=== PATIENT | male | born 1985 | race Two or more races ===

== ENCOUNTER 2016-03-28 23:17 | Emergency (ER) | payer MEDICAID ==
[~2016-03-28] VITALS: Ht 167.6 cm; Wt 79.4 kg
[2016-03-28 23:34] VITALS: BP 176/112
[2016-03-29 00:01] LABS: Basophils # (auto) 0.1 uL; Basophils % (auto) 1.6 % (0.0-2.0); Eosinophils # (auto) 0.1 uL; Eosinophils % (auto) 1.6 % (0.0-7.0); Hematocrit 48.8 % (41.0-53.0); Hemoglobin 16.4 g/dL (13.5-17.5); Lymphocytes # (auto) 2.3 uL; Lymphocytes % (auto) 30.3 % (10.0-50.0); Mean Corpuscular Hemoglobin 31.1 pg (28.0-32.0); Mean Corpuscular Hgb Conc. 33.5 g/dL (32.0-36.0); Mean Platelet Volume 7.5 fL (7.4-10.4); Monocytes # (auto) 0.6 uL; Monocytes % (auto) 8.4 % (0.0-12.0); Neutrophils # (auto) 4.4 uL; Neutrophils % (auto) 58.1 % (37.0-80.0); Platelet Count (auto) 266 10^3/uL (140-450); Red Cell Distribution Width 11.9 % (11.6-16.0); White Blood Cell 7.5 10^3/uL (4.4-10.8)
[2016-03-29 00:20] LABS: Albumin 4.6 g/dL (3.4-5.0); Anion Gap 10 (5-15); Aspartate Aminotransferase 20 U/L (15-37); BUN/Creatinine Ratio 9.4; Blood Urea Nitrogen 9 mg/dL (7-18); Carbon Dioxide 26 mmol/L (21-32); Chloride 103 mmol/L (98-107); GFR African American 116 mL/min; GFR Non-African American 96 mL/min; Glucose 112 mg/dL (74-106); Magnesium 2.2 mg/dL (1.6-2.6); Potassium 3.8 mmol/L (3.5-5.1); Sodium 139 mmol/L (136-145)
[2016-03-29 00:24] LABS: Alkaline Phosphatase 75 U/L (45-117); Bilirubin, Total 1.8 mg/dL (0.2-1.0); Total Protein 8.2 g/dL (6.4-8.2)
== END 2016-03-29 05:26 | disposition left against medical advice (07) ==
LOC: ER 23:20
DX: R00.2 Palpitations (principal); R22.0 Localized swelling, mass and lump, head; Z53.21 Procedure and treatment not carried out due to patient leaving prior to being seen by health care provider
CPT/HCPCS: 36415; 71020; 80053; 80320; 83735; 84484; 85025; 93005

== ENCOUNTER 2016-04-25 23:56 | Inpatient (IN) | payer MEDICAID ==
[~2016-04-25] VITALS: Ht 167.6 cm; Wt 87.2 kg
[2016-04-26 01:18] LABS: DEFINITIVE VIEW TRANSMISSION; Hematocrit 52.6 % (41.0-53.0); Hemoglobin 17.6 g/dL (13.5-17.5); Mean Corpuscular Hgb Conc. 33.4 g/dL (32.0-36.0); Mean Corpuscular Volume 92.7 fL (80.0-100.0); Mean Platelet Volume 8.2 fL (7.4-10.4); Platelet Count (auto) 242 10^3/uL (140-450); Red Cell Distribution Width 11.9 % (11.6-16.0); White Blood Cell 8.8 10^3/uL (4.4-10.8)
[2016-04-26 01:22] LABS: Metamyelocytes % 0; Myelocytes % 0; Promyelocytes % 0; Reactive Lymphocytes 0
[2016-04-26 01:36] LABS: Albumin 4.7 g/dL (3.4-5.0); Bilirubin, Total 2.5 mg/dL (0.2-1.0); Calcium 8.6 mg/dL (8.5-10.1); Potassium 3.1 mmol/L (3.5-5.1); Total Protein 8.1 g/dL (6.4-8.2)
[2016-04-26 01:49] LABS: Platelet Estimate Adequate; RBC Morphology Normal
[2016-04-26] MEDS ORDERED: HYDROmorphone HCL 2 MG/ML VL IV ONE (03:00)
[2016-04-26] MEDS ORDERED: ONDANSETRON HCL 4 MG/2 ML VIAL IV ONE (03:00)
[2016-04-26] MEDS ORDERED: SODIUM CHLORIDE 0.9% 1,000 ML IV SCH (05:29)
[2016-04-26] MEDS ORDERED: ACETAMINOPHEN 325 MG TAB PO PRN (05:30)
[2016-04-26] MEDS ORDERED: TEMAZEPAM 15 MG CAP PO PRN (05:30)
[2016-04-26] MEDS ORDERED: MORPHINE SULF INJ 2 MG/ML SYRINGE 1ML IV PRN (05:30)
[2016-04-26] MEDS ORDERED: ONDANSETRON HCL 4 MG/2 ML VIAL IV PRN (05:30)
[2016-04-26] MEDS ORDERED: HYDROcodone-ACET 5/325MG TAB PO PRN (05:30)
[2016-04-26 06:15] VITALS: BP 120/84
[2016-04-26] MEDS: PANTOPRAZOLE SODIUM 40 MG/10 ML VIAL IV SCH ×2 (06:23→10:00)
[2016-04-26] MEDS ORDERED: POTASSIUM CHL 20 Meq TABLET PO ONE (08:45)
[2016-04-26 09:00] VITALS: BP 120/84
[2016-04-26] MEDS ORDERED: cefTRIAXone 1GM/50ML D5W 50 ML IV SCH (09:00)
[2016-04-26 11:23] LABS: Urine Bilirubin Negative (Negative); Urine Blood Negative /uL (Negative); Urine Color Yellow (Yellow); Urine Glucose Normal (Normal); Urine Mucus FEW (None Seen); Urine Nitrite Negative (Negative); Urine RBC <1 /hpf (0 - 3); Urine Urobilinogen Normal (Negative); Urine pH 5.5 (5.0-8.0)
[2016-04-26 11:43] LABS: Urine Ketone 3+ (Negative)
== END 2016-04-26 12:51 | disposition home or self-care (01) | DRG 282 ==
LOC: ER 23:57 → OVERFLOW 23:58 → CENTRAL 04-26 06:15
PROVIDERS: ADMIT Nurse Practitioner; ATTEND Nurse Practitioner
DX: K85.20 Alcohol induced acute pancreatitis without necrosis or infection (principal); K76.0 Fatty (change of) liver, not elsewhere classified; E87.6 Hypokalemia; F17.210 Nicotine dependence, cigarettes, uncomplicated; F41.9 Anxiety disorder, unspecified; F12.90 Cannabis use, unspecified, uncomplicated; F15.90 Other stimulant use, unspecified, uncomplicated; F10.10 Alcohol abuse, uncomplicated
CPT/HCPCS: 36415; 71020; 74176; 80053; 80320; 81001; 82150; 83690; 84484; 85007; 85027; 93005; 96374; 96375; C9113; G0434; J2405

== ENCOUNTER 2016-05-04 07:58 | Emergency (ER) | payer MEDICAID ==
[~2016-05-04] VITALS: Ht 167.6 cm; Wt 84.4 kg
[2016-05-04 08:54] LABS: Basophils # (auto) 0 uL; Basophils % (auto) 0.7 % (0.0-2.0); Eosinophils # (auto) 0.2 uL; Eosinophils % (auto) 4.1 % (0.0-7.0); Hemoglobin 16.1 g/dL (13.5-17.5); Lymphocytes # (auto) 1.4 uL; Lymphocytes % (auto) 37.9 % (10.0-50.0); Mean Corpuscular Hemoglobin 30.5 pg (28.0-32.0); Mean Corpuscular Hgb Conc. 32.8 g/dL (32.0-36.0); Mean Corpuscular Volume 92.8 fL (80.0-100.0); Mean Platelet Volume 8.3 fL (7.4-10.4); Monocytes # (auto) 0.4 uL; Monocytes % (auto) 10.4 % (0.0-12.0); Neutrophils # (auto) 1.8 uL; Neutrophils % (auto) 46.9 % (37.0-80.0); Platelet Count (auto) 278 10^3/uL (140-450); Red Cell Distribution Width 13.1 % (11.6-16.0); White Blood Cell 3.8 10^3/uL (4.4-10.8)
[2016-05-04 08:58] LABS: Urine RBC None Seen /hpf (0 - 3)
[2016-05-04 09:35] LABS: Urine Bilirubin Negative (Negative); Urine Blood Negative /uL (Negative); Urine Color Yellow (Yellow); Urine Glucose Normal (Normal); Urine Ketone Negative (Negative); Urine Nitrite Negative (Negative); Urine Urobilinogen Normal (Negative); Urine pH 6.5 (5.0-8.0)
[2016-05-04 09:37] LABS: BUN/Creatinine Ratio 16.9; Bilirubin, Total 0.5 mg/dL (0.2-1.0); Calcium 8.9 mg/dL (8.5-10.1); Potassium 4.4 mmol/L (3.5-5.1); Total Protein 7.6 g/dL (6.4-8.2)
[2016-05-04 10:58] VITALS: BP 123/86
== END 2016-05-04 11:03 | disposition home or self-care (01) ==
LOC: ER 08:02
DX: R10.32 Left lower quadrant pain (principal); F17.210 Nicotine dependence, cigarettes, uncomplicated; F12.10 Cannabis abuse, uncomplicated; F15.10 Other stimulant abuse, uncomplicated
CPT/HCPCS: 36415; 80053; 81001; 82150; 83690; 85025

== ENCOUNTER 2016-05-14 11:40 | Emergency (ER) | payer MEDICAID ==
[~2016-05-14] VITALS: Ht 167.6 cm; Wt 90.9 kg
[2016-05-14 11:42] VITALS: BP 138/87
[2016-05-14 12:19] LABS: Basophils # (auto) 0 uL; Basophils % (auto) 0.4 % (0.0-2.0); Eosinophils # (auto) 0.2 uL; Hematocrit 49.5 % (41.0-53.0); Hemoglobin 16.3 g/dL (13.5-17.5); Lymphocytes % (auto) 33.9 % (10.0-50.0); Mean Corpuscular Hemoglobin 30.2 pg (28.0-32.0); Mean Corpuscular Hgb Conc. 32.8 g/dL (32.0-36.0); Mean Platelet Volume 8.1 fL (7.4-10.4); Monocytes # (auto) 0.3 uL; Monocytes % (auto) 5.1 % (0.0-12.0); Neutrophils # (auto) 3.3 uL; Neutrophils % (auto) 56.6 % (37.0-80.0); Platelet Count (auto) 319 10^3/uL (140-450); Red Cell Distribution Width 12.5 % (11.6-16.0); White Blood Cell 5.9 10^3/uL (4.4-10.8)
[2016-05-14 12:32] LABS: Urine RBC None Seen /hpf (0 - 3)
[2016-05-14 12:47] LABS: Albumin 4.1 g/dL (3.4-5.0); BUN/Creatinine Ratio 9.2; Bilirubin, Total 0.3 mg/dL (0.2-1.0); Calcium 9.1 mg/dL (8.5-10.1); Potassium 4.4 mmol/L (3.5-5.1); Total Protein 7.8 g/dL (6.4-8.2)
[2016-05-14 13:07] LABS: Urine Bilirubin Negative (Negative); Urine Blood Negative /uL (Negative); Urine Color Yellow (Yellow); Urine Glucose Normal (Normal); Urine Ketone Negative (Negative); Urine Nitrite Negative (Negative); Urine Urobilinogen Normal (Negative); Urine pH 6.5 (5.0-8.0)
== END 2016-05-14 14:14 | disposition left against medical advice (07) ==
LOC: ER 11:41
DX: M54.5 Low back pain (principal); Z53.21 Procedure and treatment not carried out due to patient leaving prior to being seen by health care provider; L29.9 Pruritus, unspecified
CPT/HCPCS: 36415; 80053; 81001; 85025

== ENCOUNTER 2016-05-25 23:11 | Emergency (ER) | payer MEDICAID ==
[~2016-05-25] VITALS: Ht 167.6 cm; Wt 83.9 kg
[2016-05-26 00:39] LABS: Basophils # (auto) 0.1 uL; Basophils % (auto) 1.5 % (0.0-2.0); Eosinophils # (auto) 0.3 uL; Eosinophils % (auto) 4.4 % (0.0-7.0); Hematocrit 46.9 % (41.0-53.0); Hemoglobin 15.7 g/dL (13.5-17.5); Lymphocytes # (auto) 2.4 uL; Lymphocytes % (auto) 42.7 % (10.0-50.0); Mean Corpuscular Hemoglobin 30.6 pg (28.0-32.0); Mean Corpuscular Hgb Conc. 33.5 g/dL (32.0-36.0); Mean Corpuscular Volume 91.4 fL (80.0-100.0); Monocytes # (auto) 0.5 uL; Monocytes % (auto) 8.7 % (0.0-12.0); Neutrophils # (auto) 2.5 uL; Neutrophils % (auto) 42.7 % (37.0-80.0); Platelet Count (auto) 265 10^3/uL (140-450); Red Cell Distribution Width 12.2 % (11.6-16.0); White Blood Cell 5.8 10^3/uL (4.4-10.8)
[2016-05-26] MEDS ORDERED: LORazepam 2MG/ML-1ML VIAL IV ONE (00:45)
[2016-05-26 00:56] LABS: Albumin 3.8 g/dL (3.4-5.0); BUN/Creatinine Ratio 20.5; Calcium 8.5 mg/dL (8.5-10.1); Potassium 3.9 mmol/L (3.5-5.1)
[2016-05-26 00:58] LABS: Bilirubin, Total 0.6 mg/dL (0.2-1.0); Total Protein 7.4 g/dL (6.4-8.2)
[2016-05-26 01:10] LABS: INR 1.07 (0.9-1.15); Partial Thromboplastin Time 26.7 sec (22.64-33.71)
[2016-05-26 01:12] LABS: Magnesium 2.1 mg/dL (1.6-2.6)
[2016-05-26 02:26] VITALS: BP 109/72
== END 2016-05-26 02:33 | disposition home or self-care (01) ==
LOC: ER 23:18
DX: F41.9 Anxiety disorder, unspecified (principal); F17.210 Nicotine dependence, cigarettes, uncomplicated; F12.10 Cannabis abuse, uncomplicated; F15.10 Other stimulant abuse, uncomplicated
CPT/HCPCS: 36415; 71010; 74176; 80053; 82150; 83690; 83735; 85025; 85379; 85610; 85730; 93005; 96374; 99285; J2060

== ENCOUNTER 2016-05-30 23:58 | Emergency (ER) | payer MEDICAID ==
[~2016-05-30] VITALS: Ht 167.6 cm; Wt 81.6 kg
[2016-05-31 00:08] VITALS: BP 143/88
== END 2016-05-31 05:16 | disposition left against medical advice (07) ==
LOC: ER 05-31
DX: R06.02 Shortness of breath (principal); F41.9 Anxiety disorder, unspecified; R42 Dizziness and giddiness; Z53.21 Procedure and treatment not carried out due to patient leaving prior to being seen by health care provider

== ENCOUNTER 2016-06-14 05:54 | Emergency (ER) | payer MEDICAID ==
[~2016-06-14] VITALS: Ht 167.6 cm; Wt 81.6 kg
[2016-06-14 09:10] VITALS: BP 128/92
== END 2016-06-14 09:51 | disposition left against medical advice (07) ==
LOC: ER 05:54
DX: F41.9 Anxiety disorder, unspecified (principal); Z76.0 Encounter for issue of repeat prescription; Z53.21 Procedure and treatment not carried out due to patient leaving prior to being seen by health care provider

== ENCOUNTER 2016-06-20 15:58 | Observation (INO) | payer MEDICAID ==
[~2016-06-20] VITALS: Ht 167.6 cm; Wt 81.6 kg
[2016-06-20] MEDS ORDERED: diphenhdrAMINE HCL 50 MG/1 ML VL IM ONE (17:30)
[2016-06-20] MEDS ORDERED: ONDANSETRON HCL 4 MG/2 ML VIAL IM ONE (17:30)
[2016-06-20 18:19] LABS: Basophils # (auto) 0 uL; Basophils % (auto) 0.5 % (0.0-2.0); Eosinophils # (auto) 0.1 uL; Eosinophils % (auto) 1.8 % (0.0-7.0); Hematocrit 52.6 % (41.0-53.0); Hemoglobin 17.8 g/dL (13.5-17.5); Lymphocytes # (auto) 2.4 uL; Lymphocytes % (auto) 31.1 % (10.0-50.0); Mean Corpuscular Hemoglobin 30.8 pg (28.0-32.0); Mean Corpuscular Hgb Conc. 33.9 g/dL (32.0-36.0); Mean Platelet Volume 7.7 fL (7.4-10.4); Monocytes # (auto) 0.4 uL; Monocytes % (auto) 5.4 % (0.0-12.0); Neutrophils # (auto) 4.8 uL; Neutrophils % (auto) 61.2 % (37.0-80.0); Platelet Count (auto) 323 10^3/uL (140-450); Red Cell Distribution Width 13.3 % (11.6-16.0); White Blood Cell 7.8 10^3/uL (4.4-10.8)
[2016-06-20 18:43] LABS: Albumin 4.6 g/dL (3.4-5.0); Anion Gap 11 (5-15); Aspartate Aminotransferase 10 U/L (15-37); BUN/Creatinine Ratio 7.8; Blood Urea Nitrogen 7 mg/dL (7-18); Calcium 9.1 mg/dL (8.5-10.1); Carbon Dioxide 24 mmol/L (21-32); Chloride 104 mmol/L (98-107); GFR African American 125 mL/min; GFR Non-African American 103 mL/min; Glucose 97 mg/dL (74-106); Potassium 3.4 mmol/L (3.5-5.1); Sodium 139 mmol/L (136-145)
[2016-06-20 18:47] LABS: Alkaline Phosphatase 85 U/L (45-117); Bilirubin, Total 1.2 mg/dL (0.2-1.0); Total Protein 8.5 g/dL (6.4-8.2)
[2016-06-20] MEDS ORDERED: SODIUM CHLORIDE 0.9% 1,000 ML IVB ONE (19:14)
[2016-06-20 19:15] LABS: Urine Bilirubin Negative (Negative); Urine Blood Negative /uL (Negative); Urine Color Yellow (Yellow); Urine Glucose Normal (Normal); Urine Nitrite Negative (Negative); Urine RBC <1 /hpf (0 - 3); Urine Urobilinogen Normal (Negative)
[2016-06-20] MEDS ORDERED: ONDANSETRON HCL 4 MG/2 ML VIAL IV ONE (19:15)
[2016-06-20] MEDS ORDERED: MORPHINE SULF INJ 2 MG/ML SYRINGE 1ML IV ONE (19:15)
[2016-06-20 19:22] LABS: Urine Ketone 2+ (Negative)
[2016-06-20 19:44] LABS: INR 1.11 (0.9-1.15); Partial Thromboplastin Time 28.2 sec (22.64-33.71); Prothrombin Time 11.4 sec (9.37-12.3)
[2016-06-20 19:51] LABS: Magnesium 2.1 mg/dL (1.6-2.6)
[2016-06-20 21:07] VITALS: BP 139/73
== END 2016-06-20 22:08 | disposition home or self-care (01) | DRG 251 ==
LOC: ER 16:03 → OVERFLOW 19:15 → ER 22:08
PROVIDERS: ADMIT Family Medicine; ATTEND Family Medicine
DX: R10.13 Epigastric pain (principal); F15.10 Other stimulant abuse, uncomplicated; F41.9 Anxiety disorder, unspecified; Z83.3 Family history of diabetes mellitus; F17.210 Nicotine dependence, cigarettes, uncomplicated
CPT/HCPCS: 36415; 71010; 74176; 80053; 80320; 81001; 82150; 83690; 83735; 84484; 85025; 85610; 85730; 93005; 96361; 96374; 96375; 99285; G0378; G0434; J2270; J2405

== ENCOUNTER 2016-06-24 23:40 | Emergency (ER) | payer MEDICAID ==
[~2016-06-24] VITALS: Ht 167.6 cm; Wt 81.6 kg
[2016-06-25 00:13] VITALS: BP 139/89
== END 2016-06-25 00:10 | disposition left against medical advice (07) ==
LOC: ER 23:43
DX: R11.2 Nausea with vomiting, unspecified (principal); Z53.21 Procedure and treatment not carried out due to patient leaving prior to being seen by health care provider